=== PATIENT | female | born 1960 | race Caucasian/White ===

== ENCOUNTER → 2016-10-28 | Outpatient (CLI) | payer BC ==
--- NOTE | 2016-10-28 14:08 | MM ---
Reason for exam: screening (asymptomatic). Last mammogram was performed 1 year and 1 month ago. History: Family history of breast cancer in mother and breast cancer in grandmother. Physical Findings: A clinical breast exam by your physician is recommended on an annual basis and results should be correlated with mammographic findings. MG Screening Mammo w CAD Bilateral CC and MLO view(s) were taken. Prior study comparison: October 05, 2015, bilateral MG screening mammo w CAD. September 11, 2014, bilateral MG screening mammo w CAD. There are scattered fibroglandular densities. There is no discrete abnormality. No significant changes when compared with prior studies. ASSESSMENT: Negative, BI-RAD 1 RECOMMENDATION: Routine screening mammogram of both breasts in 1 year.
== END | disposition home or self-care (01) ==
LOC: RADMAMWWP 07:29
PROVIDERS: ATTEND Family Medicine
DX: Z12.31 Encounter for screening mammogram for malignant neoplasm of breast (principal)

== ENCOUNTER → 2017-05-03 | Outpatient (CLI) | payer BC ==
[~2017-05-03] MED LIST: DOBUTamine 250 MG in DEXTROSE 5% IN WATER 250 ML IV ONE
--- NOTE | 2017-05-03 11:54 | P.STRESS ---
- Stress Test Note Stress Test Results/Findings: Exam Performed: dobutamine stress echo Exam Date: 05/03/17 Reason for Exam: CHEST PAIN Height: 5 ft 6 in Weight: 86.183 kg Protocol: DSE Stage: 3 Duration of Exercise: 7:00 Resting Heart Rate: 68 Resting Blood Pressure: 105/57 Maximum Achieved Heart Rate: 140 Maximum Achieved Blood Pressure: 123/77 85% PMHR: 138 100% PMHR: 162 METS: NA Technologist Comment: Stress Test Results/Findings: This is a 57-year-old female with history of hypertension, family history of ischemic heart disease being evaluated for symptoms of chest pain. Baseline EKG showed sinus rhythm with normal MT interval and QRS duration. Blood pressure at rest is 105/57, pulse rate of 68. A standard dose of dobutamine to initiated at 10 mics and was titrated to 30 mics, achieving a maximal heart rate of 140 with a blood pressure 118/67. EKGs taken during and after the dobutamine infusion did not reveal any changes to suggest ischemia. Echo data: Baseline echo images show normal wall motion and thickening. Exercise echo images with the dobutamine at low dose and high dose, showed augmentation of wall motion and thickening in all the segments. Final impression: #1. Negative debridement stress test #2. Negative dobutamine stress echo.
--- NOTE | 2017-05-04 09:15 | ECHOS ---
- Stress Test Note Stress Test Results/Findings: Exam Performed: dobutamine stress echo Exam Date: 05/03/17 Reason for Exam: CHEST PAIN Height: 5 ft 6 in Weight: 86.183 kg Protocol: DSE Stage: 3 Duration of Exercise: 7:00 Resting Heart Rate: 68 Resting Blood Pressure: 105/57 Maximum Achieved Heart Rate: 140 Maximum Achieved Blood Pressure: 123/77 85% PMHR: 138 100% PMHR: 162 METS: NA Technologist Comment: Stress Test Results/Findings: This is a 57-year-old female with history of hypertension, family history of ischemic heart disease being evaluated for symptoms of chest pain. Baseline EKG showed sinus rhythm with normal MI interval and QRS duration. Blood pressure at rest is 105/57, pulse rate of 68. A standard dose of dobutamine to initiated at 10 mics and was titrated to 30 mics, achieving a maximal heart rate of 140 with a blood pressure 118/67. EKGs taken during and after the dobutamine infusion did not reveal any changes to suggest ischemia. Echo data: Baseline echo images show normal wall motion and thickening. Exercise echo images with the dobutamine at low dose and high dose, showed augmentation of wall motion and thickening in all the segments. Final impression: #1. Negative debridement stress test #2. Negative dobutamine stress echo. [facility]
== END | disposition home or self-care (01) ==
LOC: RADNMMAIN 09:46
PROVIDERS: ATTEND Family Medicine
DX: R07.9 Chest pain, unspecified (principal)
CPT/HCPCS: 93017; 93350; J1250

== ENCOUNTER → 2018-02-28 | Outpatient (CLI) | payer OTHER ==
--- NOTE | 2018-03-03 09:21 | MM ---
Reason for exam: screening (asymptomatic). Last mammogram was performed 1 year and 4 months ago. History: Patient is postmenopausal. Family history of breast cancer in mother and breast cancer in grandmother. MG Screening Mammo w CAD Bilateral CC and MLO view(s) were taken. Prior study comparison: October 28, 2016, bilateral MG screening mammo w CAD. October 05, 2015, bilateral MG screening mammo w CAD. There are scattered fibroglandular densities. Bilateral chronic nodularity. No discrete abnormality. ASSESSMENT: Benign, BI-RAD 2 RECOMMENDATION: Routine screening mammogram of both breasts in 1 year.
== END ==
LOC: RADMAMWWP 11:15
PROVIDERS: ATTEND Family Medicine
DX: Z12.31 Encounter for screening mammogram for malignant neoplasm of breast (principal)
CPT/HCPCS: 77067

== ENCOUNTER → 2019-09-24 | Outpatient (CLI) | payer OTHER ==
--- NOTE | 2019-09-24 15:33 | XR ---
EXAMINATION TYPE: XR knee limited RT DATE OF EXAM: 09/24/2019 CLINICAL HISTORY: pain TECHNIQUE: Three views of the right knee are obtained. COMPARISON: None. FINDINGS: There is no acute fracture/dislocation. The tri-compartment joint spaces appear within no rmal limits. The overlying soft tissue appears unremarkable. IMPRESSION: There is no acute fracture or dislocation.ICD 10 NO FRACTURE, INITIAL EVALUATION
== END | disposition home or self-care (01) ==
LOC: RAD 14:58
PROVIDERS: ATTEND Family Medicine
DX: M25.561 Pain in right knee (principal)

== ENCOUNTER → 2019-10-29 | Outpatient (CLI) | payer OTHER ==
--- NOTE | 2019-10-30 13:08 | MM ---
Reason for exam: screening (asymptomatic). Last mammogram was performed 1 year and 8 months ago. History: Patient is postmenopausal. Family history of breast cancer in mother and breast cancer in grandmother. Physical Findings: A clinical breast exam by your physician is recommended on an annual basis and results should be correlated with mammographic findings. MG Screening Mammo w CAD Bilateral CC and MLO view(s) were taken. Prior study comparison: February 28, 2018, bilateral MG screening mammo w CAD. October 28, 2016, bilateral MG screening mammo w CAD. There are scattered fibroglandular densities. There is chronic nodularity in the right breast. No significant changes when compared with prior studies. ASSESSMENT: Benign, BI-RAD 2 RECOMMENDATION: Routine screening mammogram of both breasts in 1 year.
== END | disposition home or self-care (01) ==
LOC: RADMAMWWP 10:01
PROVIDERS: ATTEND Family Medicine
DX: Z12.31 Encounter for screening mammogram for malignant neoplasm of breast (principal)
CPT/HCPCS: 77067

== ENCOUNTER → 2019-11-12 | Outpatient (CLI) | payer OTHER ==
--- NOTE | 2019-11-12 16:27 | XR ---
EXAMINATION TYPE: XR shoulder limited LT DATE OF EXAM: 11/12/2019 COMPARISON: None HISTORY: Left shoulder pain TECHNIQUE: Two-view left shoulder FINDINGS: Humeral head articulates with the glenoid. The acromioclavicular junction appears normal. N o acute fractures or dislocations are evident. IMPRESSION: 1. Normal 2 view left shoulder
== END | disposition home or self-care (01) ==
LOC: RADXRMAIN 09:24
PROVIDERS: ATTEND Family Medicine
DX: M25.512 Pain in left shoulder (principal); M19.012 Primary osteoarthritis, left shoulder

== ENCOUNTER → 2022-06-20 | Outpatient (CLI) | payer OTHER ==
--- NOTE | 2022-06-21 19:02 | MM ---
Reason for Exam: Screening (asymptomatic). Last mammogram was performed 1 year(s) and 3 month(s) ago. Patient History: Menarche at age 11. First Full-Term at age 21. Postmenopausal. Patient has history of breast feeding. Maternal grandmother had breast cancer. Mother had breast cancer. Risk Values: Francia 5 year model risk: 3.0%. NCI Lifetime model risk: 12.4%. Prior Study Comparison: 10/05/2015 Bilateral Screening Mammogram, [facility]. 10/28/2016 Bilateral Screening Mammogram, [facility]. 02/28/2018 Bilateral Screening Mammogram, [facility]. 10/29/2019 Bilateral Screening Mammogram, [facility]. 04/05/2021 Bilateral Screening Mammogram, [facility]. Tissue Density: There are scattered fibroglandular densities. Findings: Analyzed By CAD. Chronic nodularity posterior lateral right breast. Areas of subareolar asymmetric density are unchanged. There is no suspicious group of microcalcifications or new suspicious mass in either breast. Overall Assessment: Benign, BI-RAD 2 Management: Screening Mammogram of both breasts in 1 year. . Patient should continue monthly self-breast exams. A clinical breast exam by your physician is recommended on an annual basis. This exam should not preclude additional follow-up of suspicious palpable abnormalities. Note on Francia scores and lifetime risk: 1. A Francia score greater than 3% is considered moderate risk. If this is the case, consider specialist referral to assess eligibility for a risk reducing agent. 2. If overall lifetime risk for the development of breast cancer is 20% or higher, the patient may qualify for future screening with alternating mammogram and breast MRI. Electronically signed and approved by: Mecca Fabian M.D. Radiologist
== END | disposition home or self-care (01) ==
LOC: RADMAMWWP 11:57
PROVIDERS: ATTEND Family Medicine
DX: Z12.31 Encounter for screening mammogram for malignant neoplasm of breast (principal); Z78.0 Asymptomatic menopausal state; Z80.3 Family history of malignant neoplasm of breast
CPT/HCPCS: 77067

== ENCOUNTER → 2023-09-04 | Outpatient (CLI) | payer OTHER ==
--- NOTE | 2023-09-11 08:31 | MM ---
Reason for Exam: Screening (asymptomatic). Last mammogram was performed 1 year(s) and 2 month(s) ago. Patient History: Menarche at age 11. First Full-Term at age 21. Postmenopausal. Patient has history of breast feeding. Maternal grandmother had breast cancer. Mother had breast cancer. Risk Values: Francia 5 year model risk: 3.1%. NCI Lifetime model risk: 12.1%. Prior Study Comparison: 10/29/2019 Bilateral Screening Mammogram, [facility]. 04/05/2021 Bilateral Screening Mammogram, [facility]. 06/20/2022 Bilateral MG screening mammo w CAD, [facility]. Tissue Density: There are scattered areas of fibroglandular density. Findings: Analyzed By CAD. There is no suspicious group of microcalcifications or new suspicious mass in either breast. A stable appearing lymph node right axilla. Overall Assessment: Benign, BI-RAD 2 Management: Screening Mammogram of both breasts in 1 year. . Patient should continue monthly self-breast exams. A clinical breast exam by your physician is recommended on an annual basis. This exam should not preclude additional follow-up of suspicious palpable abnormalities. Note on Francia scores and lifetime risk: 1. A Francia score greater than 3% is considered moderate risk. If this is the case, consider specialist referral to assess eligibility for a risk reducing agent. 2. If overall lifetime risk for the development of breast cancer is 20% or higher, the patient may qualify for future screening with alternating mammogram and breast MRI. Electronically signed and approved by: Raoul Gao M.D. Radiologis
== END | disposition home or self-care (01) ==
LOC: RADMAMWWP 10:26
PROVIDERS: ATTEND Family Medicine
DX: Z12.31 Encounter for screening mammogram for malignant neoplasm of breast (principal); Z78.0 Asymptomatic menopausal state; Z80.3 Family history of malignant neoplasm of breast
CPT/HCPCS: 77063; 77067

== ENCOUNTER 2023-09-08 10:52 | Emergency (ER) | payer OTHER ==
[2023-09-08 10:57] VITALS: RESP 18; TEMP 98.4
--- NOTE | 2023-09-08 11:16 | ED ---
Abdominal Pain HPI - General Chief Complaint: Abdominal Pain Stated Complaint: lower back pain/abd pain Time Seen by Provider: 09/08/23 11:05 Source: patient, RN notes reviewed Mode of arrival: ambulatory Limitations: no limitations - History of Present Illness Initial Comments: This is a 63 year old female who presents to the [facility] chief complaint of left lower abdominal and flank pain over the last 4 days. She states she has also been experiencing increase in urinary frequency/urgency and suprapubic tenderness. Patient was evaluated at her PCP office where her urine tested clean for infection. patient was evaluated this morning at where she was urged to report to the [facility] for eval due to clean urine with abdominal pain. she denies hematuria, dysuria, hematochezia, dark or tarry stools, nausea or vomiting, fever or chills. previous abdominal history of cholecystecotmy. - Related Data Home Medications Medication Instructions Recorded Confirmed Ascorbic Acid [Vitamin C] 500 mg PO DAILY 04/29/18 04/29/18 Cholecalciferol (Vitamin D3) 2,000 unit PO DAILY 04/29/18 04/29/18 [Vitamin D3] Glucosamine/Chondr Dueñas A Sod [Osteo 1 tab PO DAILY 04/29/18 04/29/18 Bi-Flex Caplet] [place]-3 Fatty Acids/Fish Oil [Fish 1,000 mg PO DAILY 04/29/18 04/29/18 Oil 1,000 mg Softgel] lisinopriL [Prinivil] 5 mg PO DAILY 04/29/18 04/29/18 Previous Rx's Medication Instructions Recorded Docusate [Colace] 100 mg PO BID #30 capsule 05/01/18 HYDROcodone/APAP 7.5-325MG [[place] 1 tab PO Q4H PRN 3 Days #18 tab 05/01/18 7.5-325] Phenazopyridine HCl 100 mg PO Q8H #20 tab 09/08/23 Allergies Allergy/AdvReac Type Severity Reaction Status Date / Time Sulfa (Sulfonamide Allergy Nervous/Mynor Verified 09/08/23 10:57 Antibiotics) ters Review of Systems ROS Statement: Those systems with pertinent positive or pertinent negative responses have been documented in the HPI. ROS Other: All systems not noted in ROS Statement are negative. Past Medical History Past Medical History: Hypertension History of Any Multi-Drug Resistant Organisms: None Reported Past Surgical History: Cholecystectomy Past Anesthesia/Blood Transfusion Reactions: No Reported Reaction Past Psychological History: No Psychological Hx Reported Smoking Status: Never smoker Past Alcohol Use History: Occasional Past Drug Use History: Marijuana - Past Family History Mother Family Medical History: Cancer, Hypertension Father Family Medical History: Diabetes Mellitus Brother(s) Family Medical History: Cancer General Exam Limitations: no limitations General appearance: alert, in no apparent distress Head exam: Present: atraumatic, normocephalic, normal inspection Eye exam: Present: normal appearance, PERRL, EOMI. Absent: scleral icterus, conjunctival injection, periorbital swelling ENT exam: Present: normal exam, mucous membranes moist Neck exam: Present: normal inspection. Absent: tenderness, meningismus, lymphadenopathy Respiratory exam: Present: normal lung sounds bilaterally. Absent: respiratory distress, wheezes, rales, rhonchi, stridor Cardiovascular Exam: Present: regular rate, normal rhythm, normal heart sounds. Absent: systolic murmur, diastolic murmur, rubs, gallop, clicks GI/Abdominal exam: Present: soft, tenderness (suprapubic, left abdominal), normal bowel sounds. Absent: distended, guarding, rebound, rigid Extremities exam: Present: normal inspection, full ROM, normal capillary refill. Absent: tenderness, pedal edema, joint swelling, calf tenderness Back exam: Present: normal inspection, full ROM, tenderness, CVA tenderness (L) Neurological exam: Present: alert, oriented X3, CN II-XII intact Skin exam: Present: warm, dry, intact, normal color. Absent: rash Course Vital Signs 09/08/23 09/08/23 10:54 12:56 Temperature 98.4 F Pulse Rate 91 92 Respiratory 18 18 Rate Blood Pressure 156/91 146/84 O2 Sat by Pulse 99 97 Oximetry Medical Decision Making - Medical Decision Making Was pt. sent in by a medical professional or institution? @ -No Did you speak to anyone other than the patient for history? @ -[EMS, parent, family, police, friend?] Did you review nursing and triage notes? @ -Yes, and I agree, it is accurate with regards to the patient's symptoms. Were old charts reviewed? @ -No Differential Diagnosis? @ -[chest pain, altered mental status abdominal pain women, abdominal pain men, vaginal bleeding, weakness, fever, dyspnea, syncope, headache, dizziness, GI bleed, back pain, seizure] Urinary tract infection, diverticulitis, diverticulosis, pancreatitis, nephrolithiasis, appendicits, this list is not all inclsuive. EKG interpreted by me (3pts min.)? @ -[none] EKG interpreted by me demonstrating the following: X-rays interpreted by me (1pt min.)? @ -[none] CT interpreted by me (1pt min.)? @ -CT of the abdomen and pelvis without contrast reveals no acute intraabdominal process identified. U/S interpreted by me (1pt. min.)? @ -[none] What testing was considered but not performed? (CT, X-rays, U/S, labs)? Why? @ [CT, X-rays, U/S, labs? Why?] What meds were considered but not given? Why? @ -[none] Did you discuss the management of the patient with other professionals? @ -No Did you reconcile home meds? @ -No Was smoking cessation discussed for >3mins.? @ -No Was critical care preformed (if so, how long)? @ -No Were there social determinants of health that impacted care today? How? (Homelessness, low income, unemployed, alcoholism, drug addiction, transportation, low edu. Level, literacy, decrease access to med. care, snf, rehab)? @ -No Was there de-escalation of care discussed even if they declined? (Discuss DNR or withdrawal of care, Hospice)? @ -No What co-morbidities impacted this encounter? (DM, HTN, Smoking, COPD, CAD, Cancer, CVA, Hep., AIDS, mental health diagnosis, sleep apnea, morbid obesity)? @ -[DM, HTN, Smoking, COPD, CAD, Cancer, CVA, Hep., AIDS, mental health diagnosis, sleep apnea, morbid obesity?] Was patient admitted / discharged? @ -Discharge. 59 year old female with left abdominal flank pain. Examination patient is noted to have left-sided suprapubic tenderness. There is no sign of tenderness or rigidity. She will be evaluated via laboratory studies included urinalysis for a CT of the abdomen. Patient's agreement with this plan. reviewed labs showing CBC, CMP, amylase and lipase nonelevated. Urinalysis no acute signs of infection. CT of the abdomen acute process identified. On reevaluation, patient states Her abdominal pain has improved since being in the emergency department. Recommend the patient with her primary care provider within the next week for further evaluation unspecified abdominal pain. Strict return parameters have been discussed with the patient she is otherwise understanding. case discussed with Dr. Dobbins. Undiagnosed new problem with uncertain prognosis? @ -None Drug Therapy requiring intensive monitoring for toxicity (Heparin, Nitro, Insulin, Cardizem)? @ -None Were any procedures done? @ -None Diagnosis/symptom? @ -unspecified abdominal pain, left flank pain Acute, or Chronic, or Acute on Chronic? @ -acute Uncomplicated (without systemic symptoms) or Complicated (systemic symptoms)? @ -uncomplicated Side effects of treatment? @ -[none] Exacerbation, Progression, or Severe Exacerbation] @ -none Poses a threat to life or bodily function? @ -[no] - Lab Data Result diagrams: 09/08/23 11:54 09/08/23 11:54 Lab Results 09/08/23 09/08/23 09/08/23 Range/Units 11:54 11:54 11:54 WBC 6.7 (3.8-10.6) k/uL RBC 4.97 (3.80-5.40) m/uL Hgb 15.6 (11.4-16.0) gm/dL Hct 46.1 H (34.0-46.0) % MCV 92.7 (80.0-100.0) fL MCH 31.3 (25.0-35.0) pg MCHC 33.8 (31.0-37.0) g/dL RDW 12.8 (11.5-15.5) % Plt Count 195 (150-450) k/uL MPV 7.2 Neutrophils % 68 % Lymphocytes % 24 % Monocytes % 7 % Eosinophils % 1 % Basophils % 0 % Neutrophils # 4.5 (1.3-7.7) k/uL Lymphocytes # 1.6 (1.0-4.8) k/uL Monocytes # 0.4 (0-1.0) k/uL Eosinophils # 0.1 (0-0.7) k/uL Basophils # 0.0 (0-0.2) k/uL Sodium 141 (137-145) mmol/L Potassium 4.3 (3.5-5.1) mmol/L Chloride 106 (98-107) mmol/L Carbon Dioxide 26 (22-30) mmol/L Anion Gap 9 mmol/L BUN 14 (7-17) mg/dL Creatinine 0.82 (0.52-1.04) mg/dL Est GFR (CKD-EPI)AfAm 88 (>60 ml/min/1.73 sqM) Est GFR (CKD-EPI)NonAf 76 (>60 ml/min/1.73 sqM) Glucose 103 H (74-99) mg/dL Calcium 10.1 (8.4-10.2) mg/dL Total Bilirubin 0.6 (0.2-1.3) mg/dL AST 23 (14-36) U/L ALT 21 (4-34) U/L Alkaline Phosphatase 82 (38-126) U/L Total Protein 8.0 (6.3-8.2) g/dL Albumin 5.1 H (3.5-5.0) g/dL Amylase 102 (30-110) U/L Lipase 302 H (23-300) U/L Urine Color Colorless Urine Appearance Clear (Clear) Urine pH 6.0 (5.0-8.0) Ur Specific [place] 1.007 (1.001-1.035) Urine Protein Negative (Negative) Urine Glucose (UA) Negative (Negative) Urine Ketones Negative (Negative) Urine Blood Negative (Negative) Urine Nitrite Negative (Negative) Urine Bilirubin Negative (Negative) Urine Urobilinogen <2.0 (<2.0) mg/dL Ur Leukocyte Esterase Negative (Negative) Disposition Clinical Impression: Abdominal pain, Left flank pain Disposition: HOME SELF-CARE Condition: Good Instructions (If sedation given, give patient instructions): Abdominal Pain (ED) Additional Instructions: Return to the [facility] if symptoms worsen or do not improve. follow up with your PCP in a week for further evaluation. Prescriptions: Phenazopyridine HCl 100 mg PO Q8H #20 tab Is patient prescribed a controlled substance at d/c from ED?: No Referrals: Perry Burrell DO [Primary Care Provider] - 1-2 days Time of Disposition: 12:39
--- NOTE | 2023-09-08 11:46 | CT ---
EXAMINATION TYPE: CT abdomen pelvis wo con CT DLP: 695.5 mGycm, Automated exposure control for dose reduction was used. DATE OF EXAM: 09/08/2023 11:36 AM COMPARISON: None CLINICAL INDICATION:Female, 63 years old with history of right lower abdominal and flank pain; left f lank pain TECHNIQUE: Standard CT of the abdomen and pelvis without IV or oral contrast. Lack of IV or oral co ntrast limits evaluation of solid and hollow organ viscera. Coronal and sagittal reformats were perfo rmed. FINDINGS: LOWER CHEST: Patchy likely atelectasis within the right middle lobe. ABDOMEN LIVER: Unremarkable GALLBLADDER AND BILE DUCTS: Gallbladder is not visualized and appears surgically absent. No biliary d uctal dilatation. PANCREAS: Unremarkable. SPLEEN: Unremarkable. ADRENAL GLANDS: Unremarkable. KIDNEYS AND URETERS: No evidence of hydronephrosis or renal calculus. Malrotation of the right kidney . PELVIS BLADDER: Incompletely distended but grossly unremarkable. REPRODUCTIVE: Unremarkable. ABDOMEN & PELVIS STOMACH AND BOWEL: Stomach and duodenum are unremarkable. No focal bowel wall thickening or surroundi ng inflammatory changes. Distal colonic diverticulosis without evidence for acute diverticulitis. No evidence of bowel obstruction. The appendix is within normal limits. PERITONEUM: No evidence of pneumoperitoneum or free fluid. VASCULATURE: No evidence of aortic aneurysm. MUSCULOSKELETAL: No acute osseous abnormalities LYMPH NODES: Peripheral calcified left perinephric nonenlarged 9 mm short axis lymph node. No enlarge d lymph node greater than 1 cm short axis. SOFT TISSUE/ABDOMINAL WALL: Unremarkable IMPRESSION: 1. No CT evidence for an acute abdominal/pelvic process within the limitations of a noncontrast exam . No evidence for obstructive uropathy. 2. Colon diverticulosis without evidence for acute diverticulitis.
[2023-09-08 12:05] LABS: Basophils % (A) 0 %; Eosinophils # (A) 0.1 k/uL (0-0.7); Eosinophils % (A) 1 %; HCT 46.1 % (34.0-46.0); HGB 15.6 gm/dL (11.4-16.0); Lymphocytes # (A) 1.6 k/uL (1.0-4.8); Lymphocytes % (A) 24 %; MCH 31.3 pg (25.0-35.0); MCHC 33.8 g/dL (31.0-37.0); MCV 92.7 fL (80.0-100.0); Mean Platelet Volume 7.2; Monocytes # (A) 0.4 k/uL (0-1.0); Monocytes % (A) 7 %; Neutrophils # (A) 4.5 k/uL (1.3-7.7); Neutrophils % (A) 68 %; Platelet Count 195 k/uL (150-450); RBC 4.97 m/uL (3.80-5.40); RDW 12.8 % (11.5-15.5); WBC 6.7 k/uL (3.8-10.6)
[2023-09-08 12:10] LABS: Appearance,Urine Clear (Clear); Bilirubin,Urine Negative (Negative); Blood,Urine Negative (Negative); Color,Urine Colorless; Glucose,Urine (UA) Negative (Negative); Ketones,Urine Negative (Negative); Leukocyte Esterase,Urine Negative (Negative); Nitrite,Urine Negative (Negative); Protein,Urine Negative (Negative); Specific Gravity,Urine 1.007 (1.001-1.035); Urobilinogen,Urine <2.0 mg/dL (<2.0)
[2023-09-08 12:19] LABS: ALT 21 U/L (4-34); AST 23 U/L (14-36); African American GFR (CKD) 88 (>60 ml/min/1.73 sqM); Albumin 5.1 g/dL (3.5-5.0); Alkaline Phosphatase 82 U/L (38-126); Amylase 102 U/L (30-110); Anion Gap 9 mmol/L; Blood Urea Nitrogen 14 mg/dL (7-17); Calcium 10.1 mg/dL (8.4-10.2); Carbon Dioxide 26 mmol/L (22-30); Chloride 106 mmol/L (98-107); Glucose 103 mg/dL (74-99); Lipase 302 U/L (23-300); Non-African American GFR(CKD) 76 (>60 ml/min/1.73 sqM); Potassium 4.3 mmol/L (3.5-5.1); Sodium 141 mmol/L (137-145); Total Bilirubin 0.6 mg/dL (0.2-1.3)
[2023-09-08 12:58] VITALS: BP 146/84; PULSE 92
== END 2023-09-08 13:24 | disposition home or self-care (01) ==
LOC: EC 10:52
DX: K57.30 Diverticulosis of large intestine without perforation or abscess without bleeding (principal); F12.90 Cannabis use, unspecified, uncomplicated; Z88.2 Allergy status to sulfonamides
CPT/HCPCS: 36415; 74176; 80053; 81003; 82150; 83690; 85025; 99284